=== PATIENT | male | born 1940 | race Caucasian/White ===

== ENCOUNTER 2018-01-30 20:53 | Inpatient (IN) | payer OTHER ==
[~2018-01-30] VITALS: Ht 167.6 cm; Wt 87.8 kg
--- NOTE | ~2018-01-30 | EKG ---
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
--- NOTE | ~2018-01-30 | HC ---
[facility] [place] [address] CONSULTATION Name: JASON REED Room #: 220-P [facility] IN M.R.#: [id number] Admission: 01/30/18 Attend Phys: Tereso Adams MD Discharge: 02/02/18 Date of : 40 Report #: [id number] THIS REPORT FOR: //name// CC: Tereso Flores REASON FOR CONSULTATION: Elevated creatinine. REASON FOR PRESENTATION: Shortness of breath. HISTORY OF PRESENT ILLNESS: A 77-year-old with past medical history of chronic kidney disease and a baseline creatinine of around 2.5. He last saw Dr. Aldridge in my clinic back in 2009. At that time, his creatinine was around 2.5. He wanted to stop following with Dr. Aldridge or continue to follow with his primary care physician. He presented with worsening shortness of breath. This has started a few days ago. This was associated with increased dyspnea on exertion and low blood pressure. He also notes that he is extremely pale. He was found to be anemic with an acute kidney injury. He is receiving blood. He tells me that he has vomited bright red blood. He also has some urinary retention and is followed by Urology. Creatinine was 3.7 when he came in. As I have stated, he is known to have chronic kidney disease; however, he lost followup. PAST MEDICAL HISTORY: 1. Hypertension. 2. Prostate issues with intermittent self catheterization at home. 3. Chronic kidney disease. 4. Gastrointestinal bleeding. PAST SURGICAL HISTORY: None. ALLERGIES: None. MEDICATIONS: 1. Aleve. 2. Norvasc. 3. Cipro. 4. Synthroid. 5. Zocor. FAMILY HISTORY: No known chronic kidney disease. His mother of liver cancer. He has a sister with COPD. SOCIAL HISTORY: He used to smoke, quit about 10 years ago. No drug abuse. REVIEW OF SYSTEMS: GENERAL: No fever or chills, but significant for weakness. [facility] [address] [address] CONSULTATION Name: JASON REED Room #: 220-[facility] IN M.R.#: [id number] Admission: 01/30/18 Attend Phys: Tereso Adams MD Discharge: 02/02/18 Date of : 40 Report #: [id number] CARDIOVASCULAR: No chest pain, but significant for shortness of breath. PULMONARY: No cough or hemoptysis. GASTROINTESTINAL: As per the history of present illness. GENITOURINARY: No frequency, no urgency. He does have urinary retention issues. He uses self-catheterizations. MUSCULOSKELETAL: Occasional back pain. PHYSICAL EXAMINATION: GENERAL: He is alert, oriented, in no apparent distress. VITAL SIGNS: Blood pressure was 140/63. HEAD AND NECK: No jugular venous distention, no bruit, no thyromegaly. CHEST: Clear to auscultation bilaterally. CARDIOVASCULAR: Regular with no rub. ABDOMEN: Soft, nontender. LOWER EXTREMITIES: No edema. LABORATORY DATA: Reviewed. Hemoglobin on arrival 5.6. Potassium on arrival 5.8 and is down to 4.8. Creatinine 3.5. ASSESSMENT, IMPRESSION AND PLAN: 1. Upper gastrointestinal bleeding. 2. Acute kidney injury. 3. Chronic kidney disease. 4. Noncompliance with care. 5. Proteinuria. 6. He is known to have chronic kidney disease and used to follow up with Dr. Aldridge in my clinic. He last saw him back in 2009 and at that time his creatinine was 2.5. I will reinitiate chronic kidney disease followup. 7. Avoid nonsteroidal anti-inflammatory medications. 8. Hold blood pressure medication. 9. Continue with IV hydration. 10. Status post EGD with an ulcer present. 11. On proton pump inhibitor. 12. Watch hemoglobin. 13. We will continue to follow along. <ELECTRONICALLY SIGNED> By: Quinton Barrientos MD 02/04/18 0641 [id number] [id number] Quinton Barrientos MD /nt
--- NOTE | ~2018-01-30 | EKG ---
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
--- NOTE | ~2018-01-30 | HC ---
[facility] [address] CONSULTATION Name: JASON REED Room #: 237-P ADM IN M.R.#: [id number] Admission: 01/30/18 Attend Phys: Tereso Adams MD Discharge: Date of : 40 Report #: [id number] THIS REPORT FOR: //name// CC: Tereso Flores DATE OF SERVICE: 01/31/[address] Nate Ott and Dr. Tereso Adams. INDICATION FOR CONSULTATION: The patient has been experiencing increasing shortness of air over the last 48 hours. He developed melena yesterday and came to the Emergency Room and was found to have a hemoglobin of 5. He has been admitted to the hospital and transfused overnight. He also had a GI bleeding scan in nuclear medicine that showed a bleed in his stomach. He had an elevated potassium level and received some Kayexalate. He is on his third unit of packed cells. This morning, he sat up and vomited 500 mL of bright red blood. His vitals are stable and he is feeling stable again now at this point. We are getting him intubated endotracheally and we plan to do an EGD in the next few minutes. PAST MEDICAL HISTORY: Significant for restless leg syndrome, hypertension, he has enlarged prostate and he self caths several times a day because of this. He has chronic renal insufficiency, his creatinine I believe was 3.7 on admission and it has not changed with hydration or resuscitation through the night. He has a history of hypothyroidism. PAST SURGICAL HISTORY: None. ALLERGIES: No known drug allergies. MEDICATIONS: Prior to admission included Aleve, which may have caused an ulceration for him. He also takes Norvasc, Sinemet, Cipro, Synthroid and Zocor. SOCIAL HISTORY: He drinks occasional beer, but not excessively. He used to smoke, but he quit smoking cigarettes 10 years ago. FAMILY HISTORY: Negative for colon polyps, colon cancer, Crohn's disease and ulcerative colitis. His father had an aneurysm. His mother of liver cancer. His sister of COPD. REVIEW OF SYSTEMS: He denies any dysphagia, odynophagia, gastroesophageal reflux, hiatal hernia, peptic ulcer disease. He has had nausea and vomiting, [facility] [address] [place] [address] CONSULTATION Name: JASON REED Room #: 237-P [facility] IN ..#: [id number] Admission: 01/30/18 Attend Phys: Tereso Adams MD Discharge: Date of : 40 Report #: [id number] and hematemesis this morning, but ordinarily does not experience nausea and vomiting. He says his weight usually stable. His appetite is usually good. He denies any hematochezia, but has had hematemesis and melena in the last 24 hours. He denies any abdominal pain. He has had no problems with constipation or diarrhea and his last colonoscopy was 1 year ago and he reports that it was normal. PHYSICAL EXAMINATION: GENERAL: Reveals a well-developed, well-nourished 77-year-old white male in no obvious distress. At the time of my examination, he is awake, alert, oriented x 4 and cooperative and very pleasant to converse with. HEENT: He is normocephalic, atraumatic and anicteric. HEART: Rate and rhythm are regular with a normal S1 and S2. VITAL SIGNS: Stable. Blood pressure at this time is 108/73, pulse is 111, temperature is 98 and respirations are 19. HEART: Rate and rhythm are regular. LUNGS: Clear bilaterally. ABDOMEN: Soft. Bowel sounds are present in all 4 quadrants. There is no palpable organomegaly or mass. There is no tenderness, rebound or guarding. EXTREMITIES: Warm and dry. No peripheral cyanosis, clubbing or edema. NEUROLOGIC: He appears grossly intact without lateralizing signs, but I did not test him extensively neurologically. IMPRESSION: 1. Acute upper gastrointestinal bleed, probably started about 2 days ago when the patient developed dyspnea on exertion. He was seen in his primary doctor's office at that time and apparently the primary doctor thought he had a urinary tract infection, started him on Cipro. He only took 3 doses and then read the side effect profile of the Cipro and stopped taking it because of the possible tendon rupture risk. He developed melena yesterday, came to the ER last night and was found to have a hemoglobin of 5. He was transfused stat as soon as blood became available and he was transferred to ICU where he spent a relatively quiet night on a Protonix drip. He had nuclear medicine gastrointestinal bleeding scan through the night and it was positive in the stomach as mentioned above. This morning, he vomited 500 mL of harsha bright red blood. He is on his third unit of packed cells now. The patient states he has been taking Aleve at home. 2. Restless leg syndrome. 3. Hypertension. 4. Chronic renal insufficiency. 5. Prostatic hypertrophy, self catheterizes 4 times a day. 6. Hypothyroidism. 7. Quit smoking 10 years ago. 8. Hyperkalemia, stat dose of Kayexalate given last night. 9. Last colonoscopy 1 year ago was normal. 10. Profound anemia. [facility] [address] [place] [address] CONSULTATION Name: JASON REED Room #: 237-P [facility] IN M.R.#: [id number] Admission: 01/30/18 Attend Phys: Tereso Adams MD Discharge: Date of : 40 Report #: [id number] PLAN: My recommendations are as follows: I agree with the PPI drip and aggressive volume resuscitation and transfusion of packed cells. He is going to be intubated endotracheally stat and we will perform EGD this morning as soon as we get him intubated. Informed consent with all risks explained has been obtained from the patient. The risks include bleeding, perforation, infection, complications of sedation and the possibility I could miss something. The patient is willing to proceed. Thank you very much once again for allowing me to participate in his care, Dr. Adams and Dr. Ott. <ELECTRONICALLY SIGNED> By: Myah Flores DO 01/31/18 1444 0816 [id number] Myah Flores DO /nt
[2018-01-30 21:25] VITALS: BP 114/63
[2018-01-30 21:50] LABS: MCH 24.1 pg (26.0-34.0); RDW 18.3 % (10.5-14.5)
[2018-01-30 21:52] LABS: ABSOLUTE NEUTROPHILS 12.1 thou/uL (1.4-8.2); BASOPHILS 1.7 % (0.0-2.0); EOSINOPHILS 0.4 % (0.0-3.0); LYMPHOCYTES 16.8 % (24.0-44.0); MCHC 30.6 g/dL (28.0-37.0); MCV 78.6 fL (80.0-100.0); MONOCYTES 4.9 % (1.0-8.0); PLATELET COUNT 486 thou/uL (150-400); POLYS 76.2 % (36.0-66.0); RBC 2.09 mil/uL (4.50-6.00); WBC 15.9 thou/uL (4.0-11.0)
[2018-01-30 21:57] LABS: HEMATOCRIT 16.4 % (42.0-52.0)
[2018-01-30 21:59] LABS: CALCIUM 9.3 mg/dL (8.5-10.1); CREATININE 3.7 mg/dL (0.7-1.3); POTASSIUM 5.7 mmol/L (3.5-5.1)
[2018-01-30 22:07] LABS: URINE BILIRUBIN NEGATIVE (Negative); URINE BLOOD NEGATIVE (Negative); URINE CLARITY CLEAR; URINE COLOR YELLOW; URINE GLUCOSE-RANDOM* NEGATIVE (Negative); URINE KETONES NEGATIVE (Negative); URINE LEUKOCYTES TRACE (Negative); URINE NITRITE NEGATIVE (Negative); URINE PROTEIN (DIPSTICK) 2+ (Negative); URINE SPECIFIC GRAVITY 1.015 (1.005-1.035); URINE UROBILINOGEN 0.2 E.U./dl (0.2-1.0)
[2018-01-30 22:10] LABS: ALBUMIN 2.8 g/dL (3.4-5.0); TOTAL BILIRUBIN 0.2 mg/dL (<0.1-1.0); TOTAL PROTEIN 6.1 g/dL (6.4-8.2)
[2018-01-30 22:24] LABS: CASTS None Seen /LPF (None Seen); CRYSTALS None Seen /LPF (None Seen); SQUAMOUS None Seen /LPF (0-3)
[2018-01-30 22:25] LABS: BACTERIA 1-9 Few /HPF (None Seen); URINE RBC None Seen /HPF (0-2); URINE WBC 6-15 Few /HPF (0-5)
[2018-01-30] MEDS ORDERED: SYNTHROID50 MCG PO (22:35)
[2018-01-30] MEDS ORDERED: SINEMET 25-1001 EAC1 PO (22:35)
[2018-01-30] MEDS ORDERED: ZOCOR20 MG PO (22:36)
[2018-01-30] MEDS ORDERED: NORVASC5 MG PO (22:36)
[2018-01-30] MEDS ORDERED: CIPRO500 MG PO (22:36)
[2018-01-30 22:39] VITALS: BP 132/59
[2018-01-30 23:30] LABS: APTT 20.9 Seconds (24.5-32.8); PROTIME 10.7 Seconds (9.3-11.4)
[2018-01-30 23:53] VITALS: BP 123/56
[2018-01-31] VITALS (36 sets, daily range): BP systolic 96–154; BP diastolic 45–100
[2018-01-31 03:16] LABS: HEMATOCRIT 17.3 % (42.0-52.0); HEMOGLOBIN 5.5 gm/dL (14.0-18.0)
[2018-01-31 03:19] LABS: CREATININE 3.5 mg/dL (0.7-1.3); POTASSIUM 5.8 mmol/L (3.5-5.1)
[2018-01-31 07:12] LABS: HEMATOCRIT 17.6 % (42.0-52.0); HEMOGLOBIN 5.6 gm/dL (14.0-18.0)
[2018-01-31 07:36] LABS: CALCIUM 7.8 mg/dL (8.5-10.1); CREATININE 3.7 mg/dL (0.7-1.3)
[2018-01-31 07:41] LABS: POTASSIUM 4.8 mmol/L (3.5-5.1)
[2018-01-31 09:44] LABS: HEMATOCRIT 25.8 % (42.0-52.0)
[2018-01-31 09:48] LABS: HEMOGLOBIN 8.2 gm/dL (14.0-18.0)
[2018-01-31 10:18] LABS: URINE BILIRUBIN NEGATIVE (Negative); URINE BLOOD 1+ (Negative); URINE CLARITY CLOUDY; URINE COLOR YELLOW; URINE GLUCOSE-RANDOM* NEGATIVE (Negative); URINE KETONES NEGATIVE (Negative); URINE LEUKOCYTES 3+ (Negative); URINE NITRITE NEGATIVE (Negative); URINE PROTEIN (DIPSTICK) 2+ (Negative); URINE SPECIFIC GRAVITY 1.015 (1.005-1.035); URINE UROBILINOGEN 0.2 E.U./dl (0.2-1.0)
[2018-01-31 10:27] LABS: SQUAMOUS 0-3 Few /LPF (0-3); URINE WBC >25 Many /HPF (0-5)
[2018-01-31 10:29] LABS: WBC CLUMPS Many (None Seen)
[2018-01-31 10:30] LABS: MUCUS 0-3 Light strn/LPF (None Seen); URINE RBC 3-10 Few /HPF (0-2)
[2018-01-31 10:31] LABS: CASTS None Seen /LPF (None Seen); RENAL EPITHELIAL CELLS 0-3 Few /LPF (None Seen); TRANSITIONAL EPITHEL CELL 0-3 Few /LPF (None Seen); URINE CREATININE-RANDOM* 71.9 mg/dL; URINE PROTEIN-RANDOM* 94.5 mg/dL (<11.9)
[2018-01-31 10:32] LABS: CRYSTALS None Seen /LPF (None Seen)
[2018-01-31 11:37] LABS: % SATURATION 32 % (20-39); IRON 65 ug/dL (65-175); TIBC 205 ug/dL (250-450)
[2018-01-31 14:10] LABS: GLYCOHEMOGLOBIN (HGB A1C) 5.5 % (4.8-5.6)
[2018-01-31 20:41] LABS: HEMATOCRIT 23.9 % (42.0-52.0); HEMOGLOBIN 7.6 gm/dL (14.0-18.0)
[2018-01-31 22:36] LABS: HEMOGLOBIN 7.5 gm/dL (14.0-18.0)
[2018-02-01] VITALS (25 sets, daily range): BP systolic 105–149; BP diastolic 47–110
[2018-02-01 06:05] LABS: ABSOLUTE NEUTROPHILS 10.5 thou/uL (1.4-8.2); EOSINOPHILS 2.4 % (0.0-3.0); HEMATOCRIT 20.7 % (42.0-52.0); HEMOGLOBIN 6.7 gm/dL (14.0-18.0); LYMPHOCYTES 16.4 % (24.0-44.0); MCH 28.1 pg (26.0-34.0); MCHC 32.6 g/dL (28.0-37.0); MONOCYTES 8.8 % (1.0-8.0); POLYS 71.4 % (36.0-66.0); RDW 16.1 % (10.5-14.5); WBC 14.7 thou/uL (4.0-11.0)
[2018-02-01 06:08] LABS: MCV 86.2 fL (80.0-100.0); PLATELET COUNT 269 thou/uL (150-400)
[2018-02-01 06:20] LABS: CREATININE 3.2 mg/dL (0.7-1.3); POTASSIUM 4.9 mmol/L (3.5-5.1)
[2018-02-01 12:06] LABS: URINE BILIRUBIN NEGATIVE (Negative); URINE BLOOD 1+ (Negative); URINE CLARITY CLEAR; URINE COLOR YELLOW; URINE GLUCOSE-RANDOM* NEGATIVE (Negative); URINE KETONES NEGATIVE (Negative); URINE NITRITE-REFLEX NEGATIVE (Negative); URINE PROTEIN (DIPSTICK) 1+ (Negative); URINE UROBILINOGEN 0.2 E.U./dl (0.2-1.0)
[2018-02-01 12:13] LABS: URINE LEUKOCYTES-REFLEX 2+ (Negative)
[2018-02-01 12:16] LABS: CASTS None Seen /LPF (None Seen); CRYSTALS None Seen /LPF (None Seen); SQUAMOUS 0-3 Few /LPF (0-3); URINE RBC 0-2 Rare /HPF (0-2); URINE WBC-REFLEX >25 Many /HPF (0-5); WBC CLUMPS Few (None Seen)
[2018-02-01 12:17] LABS: BACTERIA-REFLEX 1-9 Few /HPF (None Seen)
[2018-02-02 08:55] VITALS: BP 137/69
[2018-02-02 09:18] LABS: ABSOLUTE NEUTROPHILS 9.5 thou/uL (1.4-8.2); BASOPHILS 1.1 % (0.0-2.0); EOSINOPHILS 3.8 % (0.0-3.0); LYMPHOCYTES 12.9 % (24.0-44.0); MCH 28.6 pg (26.0-34.0); MCV 86.6 fL (80.0-100.0); MONOCYTES 8.1 % (1.0-8.0); PLATELET COUNT 295 thou/uL (150-400); POLYS 74.1 % (36.0-66.0); RBC 3.47 mil/uL (4.50-6.00); WBC 12.8 thou/uL (4.0-11.0)
[2018-02-02 09:20] LABS: HEMOGLOBIN 9.9 gm/dL (14.0-18.0)
[2018-02-02 09:32] LABS: ALBUMIN 2.7 g/dL (3.4-5.0); CALCIUM 8.8 mg/dL (8.5-10.1); CREATININE 2.9 mg/dL (0.7-1.3); PHOSPHORUS 3.8 mg/dL (2.5-4.9); POTASSIUM 4.1 mmol/L (3.5-5.1)
[2018-02-02] MEDS ORDERED: PROTONIX40 M1 PO ×2 (11:58→12:08)
[2018-02-02 12:21] VITALS: BP 137/69
== END 2018-02-02 12:30 | disposition home or self-care (01) | DRG 326 ==
LOC: ER 20:53 → EROBS 22:57 → ICU 22:57 → SICU 02-01 17:53
PROVIDERS: Hospitalist; Internal Medicine Gastroenterology; Internal Medicine Pulmonary Disease; Nurse Practitioner Acute Care; Physician Assistant
PROC: 0W3P8ZZ Control Bleeding in Gastrointestinal Tract, Via Natural or Artificial Opening Endoscopic (ICD-10-PCS; principal; 2018-01-31)
PROC: 0DQ98ZZ Repair Duodenum, Via Natural or Artificial Opening Endoscopic (ICD-10-PCS; principal; 2018-01-31)
PROC: 0BH17EZ Insertion of Endotracheal Airway into Trachea, Via Natural or Artificial Opening (ICD-10-PCS; principal; 2018-01-31)
PROC: 30233N1 Transfusion of Nonautologous Red Blood Cells into Peripheral Vein, Percutaneous Approach (ICD-10-PCS; principal; 2018-01-31)
PROC: 5A1935Z Respiratory Ventilation, Less than 24 Consecutive Hours (ICD-10-PCS; principal; 2018-01-31)
DX: K92.2 Gastrointestinal hemorrhage, unspecified (principal); J96.00 Acute respiratory failure, unspecified whether with hypoxia or hypercapnia; N17.9 Acute kidney failure, unspecified; D62 Acute posthemorrhagic anemia; E78.00 Pure hypercholesterolemia, unspecified; E03.9 Hypothyroidism, unspecified; G25.81 Restless legs syndrome; I12.9 Hypertensive chronic kidney disease with stage 1 through stage 4 chronic kidney disease, or unspecified chronic kidney disease; D64.9 Anemia, unspecified; N40.0 Benign prostatic hyperplasia without lower urinary tract symptoms; N18.3 Chronic kidney disease, stage 3 (moderate); R73.9 Hyperglycemia, unspecified; I95.9 Hypotension, unspecified; E87.5 Hyperkalemia; Z82.49 Family history of ischemic heart disease and other diseases of the circulatory system; Z80.8 Family history of malignant neoplasm of other organs or systems; Z83.6 Family history of other diseases of the respiratory system; Z91.19 Patient's noncompliance with other medical treatment and regimen; Z87.891 Personal history of nicotine dependence
CPT/HCPCS: 10078; 15002; 62110; 62900